=== PATIENT | female | born 1965 | race Caucasian/White ===

== ENCOUNTER 2019-03-21 00:49 | Emergency (ER) | payer OTHER ==
[~2019-03-21] VITALS: Ht 154.9 cm; Wt 116.0 kg
[~2019-03-21 00:49] MED LIST: IBUP-1542 PO; ONDA4TAB8 PO; OXYC-279 PO
[2019-03-21 00:54] VITALS: Ht 154.9 cm; Wt 116.0 kg
[2019-03-21] MEDS ORDERED: SOD CHLORIDE 0.9% 1,000 ML IV STA (00:55)
[2019-03-21] MEDS ORDERED: ONDANSETRON 4 MG INJ IV STA (00:55)
[2019-03-21] MEDS ORDERED: KETOROLAC 15 MG INJ IV STA (00:55)
[2019-03-21 03:30] VITALS: BP 155/81; PULSE 82; RESP 18
[2019-03-21] MEDS ORDERED: OXYCODONE/ACETAMINOPHEN (5/325) TAB PO ONE (03:30)
== END 2019-03-21 03:31 | disposition home or self-care (01) ==
LOC: E/R 00:49
DX: K80.20 Calculus of gallbladder without cholecystitis without obstruction (principal); E66.9 Obesity, unspecified; Z68.41 Body mass index [BMI] 40.0-44.9, adult
CPT/HCPCS: 36415; 74176; 80053; 83690; 85025; 96374; 96375; J1885; J2405; J7030; Z7502; Z7610

== ENCOUNTER 2019-04-15 07:46 | Day surgery (SDC) | payer OTHER ==
[~2019-04-15] VITALS: Ht 157.5 cm; Wt 106.4 kg
[2019-04-15] MEDS ORDERED: PROPOFOL 200 MG INJ ONE (08:43)
[2019-04-15] MEDS ORDERED: LIDOCAINE 2% (SDV) 5 ML INJ ONE (08:43)
[2019-04-15] MEDS ORDERED: PROPOFOL 60 ML ONE (08:43)
[2019-04-15 09:15] VITALS: Ht 157.5 cm; Wt 106.4 kg
[2019-04-15] MEDS ORDERED: FENTAnyl 50 MCG/ML VIAL ONE (09:34)
[2019-04-15 09:45] VITALS: BP 135/85; PULSE 70; RESP 26
[2019-04-15 10:37] VITALS: BP 137/65; PULSE 50; RESP 16
== END 2019-04-15 14:08 | disposition home or self-care (01) ==
LOC: GIL 07:46
PROVIDERS: ATTEND Internal Medicine Gastroenterology
DX: R19.4 Change in bowel habit (principal); K64.8 Other hemorrhoids; K29.50 Unspecified chronic gastritis without bleeding; E03.9 Hypothyroidism, unspecified; Z88.0 Allergy status to penicillin
CPT/HCPCS: 43239; 45378; 88305; 88312; J3010; Z7610